=== PATIENT | female | born 1990 | race Caucasian/White ===

== ENCOUNTER 2021-02-17 19:20 | Emergency (ER) | payer OTHER ==
[~2021-02-17] VITALS: Ht 162.6 cm; Wt 99.8 kg
[2021-02-17 19:25] VITALS: BP 131/68
== END 2021-02-17 20:25 | disposition home or self-care (01) ==
LOC: ER 19:20
DX: S90.32XA Contusion of left foot, initial encounter (principal); M25.572 Pain in left ankle and joints of left foot; Z90.49 Acquired absence of other specified parts of digestive tract; Z88.0 Allergy status to penicillin